=== PATIENT | male | born 1965 | race Caucasian/White ===

== ENCOUNTER → 2020-07-05 | Day surgery (SDC) | payer OTHER ==
[~2020-07-05] MED LIST: AMLO-187 PO; ASPI-630 PO; ATEN100T PO; AZEL205.2 NS; CITA20TA6 PO; CRESTOR5 MG PO; FLUT9.9S NS; GABA300C18 PO; HYDR50TA9 PO; INFL100V3 IV; IV RINGERS,LACTATED 1000ML 1,000 ML IV SCH; LIDOCAINE 2% PF 5 ML VIAL. ONE; LOSA-73 PO; MELO15TA23 PO; METF10007 PO; PROPOFOL 10 MG/ML (20ML) VIAL. IV ONE; TRAM100C3 PO
[2020-07-05 10:42] VITALS: BP 116/68
--- NOTE | 2020-07-09 18:09 | PATHOLOGY ---
[facility] Accession Number: [id number] . 01 Material submitted: . PART A: cecum - CECAL POLYP PART B: ileum - TERMINAL ILEUM BIOPSY. Modifiers: TERMINAL PART C: cecum - CECAL BIOPSY PART D: colon - ASCENDING COLON BIOPSY. Modifiers: ascending PART E: colon - ASCENDING COLON POLYP. Modifiers: ascending PART F: colon - TRANSVERSE COLON BIOPSY. Modifiers: transverse PART G: colon - DESCENDING COLON BIOPSY. Modifiers: descending PART H: sigmoid colon - SIGMOID BIOPSY PART I: rectum - RECTAL BIOPSY PART J: rectum - RECTAL POLYP . 01 Clinical history: . HISTORY OF CROHN'S COLONOSCOPY POLYP AND CROHN'S BIOPSIES . 02 Diagnosis: A. Colon biopsies, cecal polyp: - Tubular adenoma. . B. Small bowel biopsies, terminal ileum: - No significant pathologic abnormalities. . C. Colon biopsies, cecum: - Colonic mucosa showing no evidence of active chronic destructive colitis or dysplasia. . D. Colon biopsies, ascending colon: - Colonic mucosa showing no evidence of active chronic destructive colitis or dysplasia. . E. Colon biopsies, ascending colon polyp: - Tubular adenoma. . F. Colon biopsies, transverse colon: - Colonic mucosa showing no evidence of active chronic destructive colitis or dysplasia. . G. Colon biopsies, descending colon: - Colonic mucosa showing no evidence of active chronic destructive colitis or dysplasia. . H. Colon biopsies, sigmoid colon: - Colonic mucosa showing no evidence of active chronic destructive colitis or dysplasia. . I. Colorectal biopsy, rectum: - Segment of rectal mucosa showing no evidence of active chronic destructive colitis or dysplasia. . J. Colorectal biopsy, rectal polyp: - Polypoid segment of ulcerated rectal mucosa and granulation tissue showing acute inflammation. . (JPM:barrett; 07/09/2020) CHARLENE 07/09/2020 1732 Local . 02 Comment: Sections of the terminal ileum biopsy reveal segments of small intestine mucosa showing no sprue-like changes or significant inflammatory changes. . Sections of the cecal, ascending colon, transverse colon, descending colon, sigmoid colon, and rectal biopsies reveal segments of histologically normal colonic and rectal mucosa showing no evidence of active chronic destructive colitis or dysplasia. . Sections of the cecal polyp and ascending colon polyp biopsies reveal tubular adenomas showing no high-grade dysplasia or evidence of malignancy. . Sections of the rectal polyp biopsy essentially reveal a polypoid segment of granulation tissue showing acute inflammation. There is no evidence of dysplasia or malignancy. . (JPM:diabetes territory manager; 07/09/2020) . 02 Electronically signed: . Danny Perez MD, Pathologist NPI- [id number] . 01 Gross description: . A. The specimen is received in formalin, labeled "Eloy, Cipriano", "cecal polyp". Received is a single segment of pale crawford soft tissue measuring 0.2 cm. The specimen is entirely submitted in cassette A1. . B. The specimen is received in formalin, labeled "Eloy, Cipriano", "terminal ileum biopsy". Received are 2 segments of pale crawford tissue measuring 0.2 and 0.3 cm. The specimen is entirely submitted in cassette B1. . C. The specimen is received in formalin, labeled "Eloy, Cipriano", "cecal biopsy". Received are 2 segments of pale crawford tissue measuring 0.3 and 0.4 cm. The specimen is entirely submitted in cassette C1. . D. The specimen is received in formalin, labeled "Eloy, Cipriano", "ascending colon biopsy". Received are multiple segments of pale crawford tissue ranging in size from 0.1 cm to 0.5 cm. The specimen is entirely submitted in cassette D1. . E. The specimen is received in formalin, labeled "Eloy, Cipriano", "ascending colon polyp". Received are 2 segments of pale crawford soft tissue measuring 0.2 and 0.5 cm. The specimen is entirely submitted in cassette E1. . F. The specimen is received in formalin, labeled "Eloy, Cipriano", "transverse colon biopsy". Received are multiple segments of pale crawford soft tissue ranging in size from 0.1 cm to 0.4 cm. The specimen is entirely submitted in cassette F1. . G. The specimen is received in formalin, labeled "Eloy, Cipriano", "descending colon biopsy". Received are multiple segments of pale crawford soft tissue ranging in size from 0.2 cm to 0.4 cm. The specimen is entirely submitted in cassette G1. . H. The specimen is received in formalin, labeled "Eloy, Cipriano", "sigmoid biopsy". Received are multiple segments of pale crawford soft tissue ranging in size from 0.2 cm to 0.3 cm. The specimen is entirely submitted in cassette H1. . I. The specimen is received in formalin, labeled "Eloy, Cipriano", "rectum biopsy". Received is a single segment of pale crawford soft tissue measuring 0.3 cm. The specimen is entirely submitted in cassette I1. . J. The specimen is received in formalin, labeled "Eloy, Cipriano", "rectal polyp". Received is a single segment of pale crawford soft tissue measuring 0.2 cm. The specimen is entirely submitted in cassette J1.([facility]; 07/06/2020) PATEL/DONG 07/06/2020 0858 Local . 02 Pathologist provided ICD-10: D12.0, D12.2, K62.6, K62.89 . 02 CPT . 379960, 012061, 376397, 433938, 688792, 405637, 089326, 126472, 475598, [id number] Specimen Comment: A courtesy copy of this report has been sent to [phone], [phone] Specimen Comment: [id number], Specimen Comment: Report sent to , / Performed at: 01 [facility] [address], [place], [place] [id number] MD Jefferson España MD Phone: [phone] Performed at: 02 [facility] [address] [place], [place] [id number] MD Danny Perez MD Phone: [phone]
== END | disposition home or self-care (01) ==
LOC: ENDOS 08:46
PROVIDERS: ATTEND Internal Medicine Gastroenterology
DX: K50.80 Crohn's disease of both small and large intestine without complications (principal); D12.8 Benign neoplasm of rectum; D12.0 Benign neoplasm of cecum; D12.2 Benign neoplasm of ascending colon; K52.3 Indeterminate colitis; K64.0 First degree hemorrhoids; K63.89 Other specified diseases of intestine; K62.6 Ulcer of anus and rectum; I10 Essential (primary) hypertension; E78.00 Pure hypercholesterolemia, unspecified; K21.9 Gastro-esophageal reflux disease without esophagitis; E11.9 Type 2 diabetes mellitus without complications; G47.30 Sleep apnea, unspecified; M19.90 Unspecified osteoarthritis, unspecified site; F41.9 Anxiety disorder, unspecified; F32.9 Major depressive disorder, single episode, unspecified; Z79.82 Long term (current) use of aspirin; Z79.84 Long term (current) use of oral hypoglycemic drugs; Z79.899 Other long term (current) drug therapy; Z90.49 Acquired absence of other specified parts of digestive tract; Z98.890 Other specified postprocedural states; Z88.8 Allergy status to other drugs, medicaments and biological substances
CPT/HCPCS: 45380; 88305; J2704